=== PATIENT | female | born 1960 | race Caucasian/White ===

== ENCOUNTER → 2016-08-08 | Outpatient (CLI) | payer BC ==
--- NOTE | 2016-09-08 14:26 | ENG ---
DATE OF SERVICE: VIDEO ELECTRONYSTAGMOGRAPHIC REPORT AGE: 55 ENG INDICATIONS: A 55-year-old female with multiple types of dizziness sudden onset of 2 weeks before testing and improving, with dizziness occurring a few minutes every day. Dizziness can be triggered by positional changes, including going from a lying to a seated position, looking up or head back position, turning the head left or right, bending over. The patient denies hearing difficulties. No fullness or pain in either ear. VNG FINDINGS: SPONTANEOUS NYSTAGMUS: SACCADES: Saccade shows intact peak velocities, accuracies, and latencies. GAZE TEST: Gaze with fixation is negative for nystagmus including in any of the directions of gaze including centrally with vision denied. SINUSOIDAL TRACKING: Tracking shows smooth tracking; no break-ups. OKN TEST: Opticokinetic nystagmus shows no significant asymmetry. LYNETTE-HALLPIKE TEST: Lynette-Hallpike maneuvers were positive on the left with severe dizziness triggered. POSITION TEST: Static position testing shows no nystagmus in any of the positions tested with eyes open or with vision denied. CALORIC TEST: The patient on the initial testing 07/31/2016 did not do calorics. The patient came back on 08/08/16 to complete the testing with calorics. Caloric testing showed vigorous response in each ear with 15% unilateral right caloric weakness, which is within normal limits. Directional preponderance 7% left ear. Fixation index: 47%. CONCLUSIONS: Testing consistent with benign positional vertigo of the left ear. There is no evidence for central nervous system features nor vestibulopathy by testing.
== END | disposition home or self-care (01) ==
LOC: NEUROMAIN 12:49
PROVIDERS: ATTEND Otolaryngology
DX: R42 Dizziness and giddiness (principal)
CPT/HCPCS: 92537